=== PATIENT | male | born 1970 | race African-American/Black ===

== ENCOUNTER 2020-06-07 23:59 | Emergency (ER) | payer OTHER ==
[~2020-06-07] VITALS: Ht 185.4 cm; Wt 81.7 kg
[~2020-06-07 23:59] MED LIST: KEFLEX500 MG PO; NOHOMEMEDICATIONS
[2020-06-08 00:52] VITALS: BP 134/74
== END 2020-06-08 00:52 | disposition home or self-care (01) ==
LOC: ER 23:59
DX: S01.111A Laceration without foreign body of right eyelid and periocular area, initial encounter (principal); Y04.0XXA Assault by unarmed brawl or fight, initial encounter; Y93.89 Activity, other specified; Y92.89 Other specified places as the place of occurrence of the external cause; Y99.8 Other external cause status